=== PATIENT | male | born 1965 | race African-American/Black ===

== ENCOUNTER → 2018-01-17 | Outpatient (CLI) | payer BC ==
[2016-09-14 06:00] VITALS: BP 147/91
[~2018-01-17] MED LIST: AMLO10TA2 PO; ASPI-630 PO; ATEN100T PO; LISI1TAB5 PO
--- NOTE | 2018-01-17 16:38 | RAD ---
Focus ultrasound evaluation of soft tissue mass, left neck 01/17/2018 Indication: Long-standing palpable lump, possible recent increase in size. Comparison study: None Discussion: Focal ultrasound evaluation in the area of palpable abnormality as indicated by the patient was performed. There is an ovoid subcutaneous mass measuring 9.5 x 6.4 x 3.2 cm. Mass is nonvascular and has echogenicity nearly identical to surrounding fat. No definitive calcification is seen. No fluid is identified. Impression: 9.5 x 6.4 x 3.2 cm mass in the posterior mass in the left neck with ultrasound characteristics most consistent with a lipoma
== END | disposition home or self-care (01) ==
LOC: US 13:52
PROVIDERS: ATTEND Physician Assistant
DX: D17.79 Benign lipomatous neoplasm of other sites (principal); I10 Essential (primary) hypertension
CPT/HCPCS: 76536

== ENCOUNTER → 2019-12-04 | Outpatient (CLI) | payer BC ==
[2016-09-14 06:00] VITALS: BP 147/91
[~2019-12-04] MED LIST changes: -AMLO10TA2 PO; +AMLO10TA8 PO; +LISI1TAB19 PO; -LISI1TAB5 PO
--- NOTE | 2019-12-04 16:23 | RAD ---
EXAM: Right knee, 3 views. HISTORY: Pain. COMPARISON: None. FINDINGS: 3 views of the right knee are obtained. There is no fracture, dislocation or subluxation. There is no joint effusion. IMPRESSION: No acute osseous finding. Electronically signed by: Julieta Merida MD (12/04/2019 4:20 PM) [id number]
== END | disposition home or self-care (01) ==
LOC: DXRAD 14:19
PROVIDERS: ATTEND Family Medicine
DX: M79.604 Pain in right leg (principal); W19.XXXA Unspecified fall, initial encounter; Y93.89 Activity, other specified; Y92.89 Other specified places as the place of occurrence of the external cause; Y99.8 Other external cause status
CPT/HCPCS: 73562